=== PATIENT | female | born 1995 | race Caucasian/White ===

== ENCOUNTER 2019-03-04 18:29 | Outpatient (CLI) | payer OTHER ==
[2019-03-04] MEDS: ACETAMINOPHEN 325 MG TAB PO (19:35)
[2019-03-04 19:59] LABS: ADD UMIC YES; UR ASCORBIC ACID NEGATIVE (NEGATIVE); UR BACTERIA FEW /HPF (NONE SEEN); UR BILIRUBIN (Dip) NEGATIVE (NEGATIVE); UR BLOOD (Dip) 1+ mg/dL (NEGATIVE); UR CALCIUM OXALATE CRYSTAL MODERATE /HPF (NONE SEEN); UR CLARITY SLIGHTLY CLOUDY (CLEAR); UR COLOR YELLOW (YELLOW); UR GLUCOSE (Dip) NEGATIVE (NEGATIVE); UR KETONES (Dip) NEGATIVE (NEGATIVE); UR LEUKOCYTE ESTERASE (Dip) TRACE Leu/ul (NEGATIVE); UR MUCUS FEW /HPF (NONE SEEN); UR NITRITE (Dip) NEGATIVE (NEGATIVE); UR RBC 3 /HPF (0-5); UR SPECIFIC GRAVITY (Dip) 1.025 (1.003-1.030); UR SQUAMOUS EPITHELIAL CELL MODERATE /HPF (FEW); UR TOTAL PROTEIN (Dip) 1+ mg/dl (NEGATIVE); UR UROBILINOGEN (Dip) NEGATIVE (NEGATIVE); UR WBC 5 /HPF (0-5)
[2019-03-04 20:59] LABS: AMPHETAMINE/METHAMPHETAMINE Negative (NEGATIVE); BARBITURATES Negative (NEGATIVE); BENZODIAZEPINES Negative (NEGATIVE); CANNABINOIDS Positive (NEGATIVE); COCAINE Negative (NEGATIVE)
[2019-03-04 21:54] LABS: OPIATES Negative (NEGATIVE)
== END 2019-03-04 21:25 | disposition home or self-care (01) ==
LOC: OBT 18:29 → L-D 18:33 → OBT 21:25
DX: O9A.212 Injury, poisoning and certain other consequences of external causes complicating pregnancy, second trimester (principal); S09.90XA Unspecified injury of head, initial encounter; Y04.2XXA Assault by strike against or bumped into by another person, initial encounter; Y92.89 Other specified places as the place of occurrence of the external cause
CPT/HCPCS: 76805; 80307; 81001; 87086

== ENCOUNTER 2019-03-04 21:33 | Emergency (ER) | payer SELFPAY, OTHER | END 2019-03-04 22:00 | disposition left against medical advice (07) | LOC: FTE 22:00 | DX: Z53.21 Procedure and treatment not carried out due to patient leaving prior to being seen by health care provider (principal) ==

== ENCOUNTER 2019-07-03 23:11 | Inpatient (IN) | payer OTHER ==
[2019-07-04] MEDS ORDERED: OXYTOCIN 30 UNITS/LR 500 ML IV (02:00)
[2019-07-04] MEDS ORDERED: CARBOPROST 250 MCG INJ IM (02:00)
[2019-07-04] MEDS ORDERED: MISOPROSTOL 200 MCG TAB PR (02:00)
[2019-07-04] MEDS ORDERED: LIDOCAINE 1% (MPF) 30 ML INJ INJ (02:00)
[2019-07-04] MEDS ORDERED: METHYLERGONOVINE 0.2 MG INJ IM (02:00)
[2019-07-04] MEDS: LACTATED RINGER'S 1,000 ML IV ×4 (02:17→20:54)
[2019-07-04 02:56] LABS: ADD MAN DIFF? NO
[2019-07-04 03:00] LABS: WHITE BLOOD COUNT 7.7 10^3/ul (4.8-10.8)
[2019-07-04 03:00] LABS: BASOPHILS % 0.3 % (0.0-2.0); EOSINOPHILS # 0.1 10^3/ul (0.0-0.5); EOSINOPHILS % 1.8 % (0.0-7.0); HEMOGLOBIN 11.7 g/dl (12.0-16.0); LYMPHOCYTES % 25.9 % (15.0-51.0); MEAN CORPUSCULAR HEMOGLOBIN 29.6 pg (29.0-33.0); MEAN CORPUSCULAR HGB CONC 32.5 g/dl (32.0-37.0); MEAN CORPUSCULAR VOLUME 91.1 fl (82.0-101.0); MEAN PLATELET VOLUME 11.5 fl (7.4-10.4); MONOCYTE # 0.6 10^3/ul (0.3-0.9); MONOCYTES % 8.1 % (0.0-11.0); NEUTROPHIL # 4.9 10^3/ul (1.6-7.5); NEUTROPHILS % 63.5 % (39.0-77.0); PLATELET COUNT 163 10^3/UL (140-415); RED BLOOD COUNT 3.95 10^6/ul (4.20-5.40); RED CELL DISTRIBUTION WIDTH 13.1 % (11.5-14.5)
[2019-07-04 03:10] LABS: ADD UMIC NO; UR ASCORBIC ACID NEGATIVE (NEGATIVE); UR BILIRUBIN (Dip) NEGATIVE (NEGATIVE); UR BLOOD (Dip) NEGATIVE (NEGATIVE); UR CLARITY SLIGHTLY CLOUDY (CLEAR); UR COLOR YELLOW (YELLOW); UR GLUCOSE (Dip) NEGATIVE (NEGATIVE); UR KETONES (Dip) TRACE mg/dL (NEGATIVE); UR LEUKOCYTE ESTERASE (Dip) NEGATIVE Leu/ul (NEGATIVE); UR MUCUS FEW /HPF (NONE SEEN); UR NITRITE (Dip) NEGATIVE (NEGATIVE); UR RBC 1 /HPF (0-5); UR SPECIFIC GRAVITY (Dip) 1.031 (1.003-1.030); UR SQUAMOUS EPITHELIAL CELL MANY /HPF (FEW); UR TOTAL PROTEIN (Dip) NEGATIVE (NEGATIVE); UR UROBILINOGEN (Dip) NEGATIVE (NEGATIVE); UR WBC 4 /HPF (0-5)
[2019-07-04 03:16] LABS: ALANINE AMINOTRANSFERASE 22 IU/L (13-69); ALBUMIN 3.2 g/dl (3.3-4.9); ALBUMIN/GLOBULIN RATIO 0.94; ALKALINE PHOSPHATASE 157 IU/L (42-121); ANION GAP 7 (5-13); ASPARTATE AMINO TRANSFERASE 22 IU/L (15-46); BILIRUBIN,INDIRECT 0.2 mg/dl (0-1.1); BILIRUBIN,TOTAL 0.2 mg/dl (0.2-1.3); BLOOD UREA NITROGEN 10 mg/dl (7-20); CALCIUM 9.3 mg/dl (8.4-10.2); CARBON DIOXIDE 24 mmol/L (21-31); CHLORIDE 104 mmol/L (97-110); CREATININE 0.48 mg/dl (0.44-1.00); Estimated GFR > 60 mL/min (>60); GLUCOSE 96 mg/dl (70-220); POTASSIUM 4.1 mmol/L (3.5-5.1); SODIUM 135 mmol/L (135-144); TOTAL PROTEIN 6.6 g/dl (6.1-8.1)
[2019-07-04 03:23] LABS: INR 0.89; PROTIME 12.1 Sec (11.9-14.9); PT RATIO 0.9
[2019-07-04 03:24] LABS: PARTIAL THROMBOPLASTIN TIME 25.4 Sec (23.0-35.0)
[2019-07-04] MEDS: AMPICILLIN 2 GM/NS (PMX) 100 ML IV (04:17)
[2019-07-04] MEDS: BUTORPHANOL 2 MG INJ IV (06:41)
[2019-07-04] MEDS: AMPICILLIN 1 GM/NS (PMX) 50 ML IV ×4 (08:21→20:53)
[2019-07-04 09:23] LABS: AMPHETAMINE/METHAMPHETAMINE Negative (NEGATIVE); BARBITURATES Negative (NEGATIVE); BENZODIAZEPINES Negative (NEGATIVE); CANNABINOIDS Negative (NEGATIVE); COCAINE Negative (NEGATIVE); OPIATES Negative (NEGATIVE)
[2019-07-04] MEDS: OXYTOCIN 30 UNITS/LR 500 ML IV (11:15)
[2019-07-04 11:47] LABS: HEPATITIS B SURFACE ANTIGEN NEGATIVE (NEGATIVE)
[2019-07-04] MEDS ORDERED: NALOXONE (0.4 MG/ML) INJ IV (15:00)
[2019-07-04] MEDS ORDERED: KETOROLAC 30 MG INJ IV (15:00)
[2019-07-04] MEDS ORDERED: HYDROmorphONE 0.5 MG/0.5 ML SYG IV ×2 (15:00)
[2019-07-04] MEDS ORDERED: DIPHENHYDRAMINE 50 MG INJ IV (15:00)
[2019-07-04] MEDS ORDERED: ONDANSETRON 4 MG INJ IV (15:00)
[2019-07-04 15:21] LABS: RAPID PLASMA REAGIN NONREACTIVE (NR)
[2019-07-04] MEDS: FENTAnyl 2MCG/ML-ROPIV 0.2% 100 ML BAG EPI (23:51)
[2019-07-05] MEDS: AMPICILLIN 1 GM/NS (PMX) 50 ML IV (00:45)
[2019-07-05] MEDS: IBUPROFEN 600 MG TAB PO ×5 (04:29→23:40)
[2019-07-05] MEDS: OXYTOCIN 30 UNITS/LR 500 ML IV ×3 (04:32→14:59)
[2019-07-05] MEDS ORDERED: NACL 0.9% 3 ML SYG IV (06:30)
[2019-07-05] MEDS ORDERED: OXYTOCIN 30 UNITS/LR 500 ML IV (06:30)
[2019-07-05] MEDS ORDERED: MISOPROSTOL 200 MCG TAB PR (06:30)
[2019-07-05] MEDS ORDERED: ZOLPIDEM 5 MG TAB PO (06:30)
[2019-07-05] MEDS ORDERED: CARBOPROST 250 MCG INJ IM (06:30)
[2019-07-05] MEDS ORDERED: ONDANSETRON 4 MG INJ IV (06:30)
[2019-07-05] MEDS ORDERED: DIPHENHYDRAMINE 25 MG CAP PO (06:30)
[2019-07-05] MEDS ORDERED: WITCH HAZEL/GLYCERIN PAD PR (06:30)
[2019-07-05] MEDS: HYDROCODONE/APAP (5/325) TAB PO ×3 (06:40→18:59)
[2019-07-05] MEDS: LACTATED RINGER'S 1,000 ML IV ×3 (07:58→16:46)
[2019-07-05 08:05] LABS: HEMATOCRIT 34.7 % (37.0-47.0); HEMOGLOBIN 11.3 g/dl (12.0-16.0)
[2019-07-05] MEDS: SENNA/DOCUSATE NA (8.6MG/50MG) TAB PO ×2 (09:05→21:55)
[2019-07-06] MEDS: IBUPROFEN 600 MG TAB PO ×3 (05:41→18:20)
[2019-07-06] MEDS: HYDROCODONE/APAP (5/325) TAB PO ×2 (08:58→16:25)
[2019-07-06] MEDS: SENNA/DOCUSATE NA (8.6MG/50MG) TAB PO ×2 (08:58→21:54)
[2019-07-06] MEDS: LANOLIN HPA 1 PKT TOP (08:58)
[2019-07-06 09:47] LABS: ADD MAN DIFF? NO
[2019-07-06 09:50] LABS: BASOPHILS % 0.1 % (0.0-2.0); EOSINOPHILS # 0.2 10^3/ul (0.0-0.5); EOSINOPHILS % 1.8 % (0.0-7.0); HEMATOCRIT 35.4 % (37.0-47.0); HEMOGLOBIN 11.4 g/dl (12.0-16.0); LYMPHOCYTES # 1.8 10^3/ul (0.8-2.9); LYMPHOCYTES % 19.8 % (15.0-51.0); MEAN CORPUSCULAR HEMOGLOBIN 29.5 pg (29.0-33.0); MEAN CORPUSCULAR HGB CONC 32.2 g/dl (32.0-37.0); MEAN CORPUSCULAR VOLUME 91.7 fl (82.0-101.0); MEAN PLATELET VOLUME 11.9 fl (7.4-10.4); MONOCYTE # 0.4 10^3/ul (0.3-0.9); MONOCYTES % 4.6 % (0.0-11.0); NEUTROPHIL # 6.6 10^3/ul (1.6-7.5); PLATELET COUNT 155 10^3/UL (140-415); RED BLOOD COUNT 3.86 10^6/ul (4.20-5.40); RED CELL DISTRIBUTION WIDTH 13.2 % (11.5-14.5)
[2019-07-07] MEDS: IBUPROFEN 600 MG TAB PO ×3 (00:11→12:18)
[2019-07-07] MEDS: VARICELLA VACCINE LIVE/PF 1,350 UNIT/0.5 ML ML SC* (09:00)
[2019-07-07] MEDS: MEASLES,MUMPS,RUBELLA VACCINE INJ SC* (09:00)
[2019-07-07] MEDS: SENNA/DOCUSATE NA (8.6MG/50MG) TAB PO (09:49)
[2019-07-07] MEDS: HYDROCODONE/APAP (5/325) TAB PO (09:49)
[2019-07-07] MEDS: DIPHTH/TET/ACEL PERTUSS (ADULT) 0.5 ML VIAL IM* (12:19)
== END 2019-07-07 16:00 | disposition home or self-care (01) | DRG 807 ==
LOC: OBT 23:11 → PP1 07-05 05:53 → L-D 23:13
PROC: 10E0XZZ Delivery of Products of Conception, External Approach (ICD-10-PCS; principal; 2019-07-05)
PROC: 3E033VJ Introduction of Other Hormone into Peripheral Vein, Percutaneous Approach (ICD-10-PCS; 2019-07-05)
DX: O69.81X0 Labor and delivery complicated by cord around neck, without compression, not applicable or unspecified (principal); Z37.0 Single live birth; Z3A.37 37 weeks gestation of pregnancy
CPT/HCPCS: 62322; 76815; 76818; 80053; 80307; 81001; 81003; 85014; 85018; 85025; 85610; 85730; 86592; 86850; 86900; 86901; 87340; 90715; 90716; 93970